=== PATIENT | female | born 1990 | race Caucasian/White ===

== ENCOUNTER 2017-07-28 10:46 | Emergency (ER) | payer SELFPAY ==
[~2017-07-28] VITALS: Ht 162.6 cm; Wt 108.0 kg
[~2017-07-28 10:46] MED LIST: BENT20TA PO; ZOFR4TAB3 PO
[2017-07-28 10:54] VITALS: BP 132/68; PULSE 102; RESP 16; TEMP 98.3; O2SAT 98
--- NOTE | 2017-07-28 12:20 | PD ---
HPI Chief Complaint: Oral / Dental Pain or Problem Time Seen by Provider: 11:30 Travel History International Travel<30 days: No Contact w/Intl Traveler<30days: No Traveled to known affect area: No History of Present Illness HPI 26-year-old female presents to the ED for evaluation of 1 week history of right lower dental pain. Pain is rated 10/10, radiates to the right jaw. No alleviating or exacerbating factors reported. Patient endorses dental problems , including cavities and broken teeth. She denies fever, chills, nausea, vomiting, difficulty swallowing. She treated at home with ibuprofen, last dose last night. She does not have a dentist. PFSH Past Medical History Diminished Hearing: No ?: Not : 0 Past Surgical History Cholecystectomy: Yes Pacemaker: No Social History Alcohol Use: No Tobacco Use: No Substance Use: No Allergies-Medications (Allergen,Severity, Reaction): Coded Allergies: No Known Allergies (Verified Adverse Reaction, Unknown, 07/28/17) Reported Meds & Prescriptions Reported Meds & Active Scripts Active Magic Mouthwash Adult Liq (Multi-Ingredient Mouthwash/Gargle) 120 Ml Susp 10 Ml SWISH-SWAL ACHS 7 Days Each 5mL contains: Nystatin 200,000units, Diphenhydramine 4.25mg, Viscous Lidocaine 10mg, Ashraf syrup 0.8 mL Ibuprofen 800 Mg Tab 800 Mg PO Q8H PRN Penicillin V Potassium 500 Mg Tab 500 Mg PO Q6H 7 Days Zofran ODT (Ondansetron HCl) 4 Mg Tab 4 Mg PO Q6 PRN May substitute, non-ODT form Bentyl (Dicyclomine HCl) 20 Mg Tab 20 Mg PO QID PRN Take as needed for abdominal cramping. Review of Systems Except as stated in HPI: all other systems reviewed are Neg Physical Exam Narrative GENERAL: Well-nourished, well-developed SKIN: Warm and dry. HEAD: Normocephalic. Atraumatic. EYES: No scleral icterus. No injection or drainage. PERRLA. EOMI. ENT: Pearly miller tympanic membranes bilaterally. Nasal mucosa is moist. Oropharynx without erythema, edema or exudate. DENTAL: Poor dentition overall. Multiple dental caries and broken teeth in the right lower jaw. Tooth #31 is surrounded by erythematous and tender mucosa. No evidence of abscess. NECK: Supple, trachea midline. No JVD or lymphadenopathy. CARDIOVASCULAR: Regular rate and rhythm without murmurs, gallops, or rubs. No carotid bruits. 2+ DP and radial pulses bilaterally. RESPIRATORY: Breath sounds clear and equal bilaterally. No accessory muscle use. GASTROINTESTINAL: Abdomen soft, non-tender, nondistended. + Bowel sounds MUSCULOSKELETAL: No cyanosis, or edema. Full, active range of motion. Strength 5/5. Neurovascularly intact. BACK: Nontender without obvious deformity. No CVA tenderness. Data Data Last Documented VS Vital Signs Date Time Temp Pulse Resp B/P (MAP) Pulse Ox O2 Delivery O2 Flow Rate FiO2 07/28/17 12:34 07/28/17 10:54 98.3 102 16 98 Orders Orders Acetamin-Hydrocod 325-5 Mg ([place] 5-325 (07/28/17 12:30) Penicillin V Potassium (Veetids) (07/28/17 12:30) Ed Discharge Order (07/28/17 12:24) [facility] Medical Decision Making Medical Screen Exam Complete: Yes Emergency Medical Condition: Yes Differential Diagnosis Dental abscess versus dental caries versus impacted wisdom tooth versus other Narrative Course 26-year-old female presents to the ED for evaluation of 1 week history of right lower dental pain. Pain is rated 10/10, radiates to the right jaw. Patient endorses dental problems, including cavities and broken teeth. She denies fever , chills, nausea, vomiting, difficulty swallowing. Patient afebrile on presentation. On physical exam she has terrible dentition overall. There is multiple broken teeth and dental caries. One tooth is concerning for possible infected caries. No sign of drainable abscess. She is administered 5 mg Lortab. She is prescribed penicillin VK 500 mg every 6 hour 7 days, first dose administered in the ED. She is also prescribed Magic mouthwash and short course of anti-inflammatories. She is provided with a list of community dental resources. She is stable and discharged home. Diagnosis Primary Impression: Dental caries Additional Impression: Infected dental caries Referrals: Dentist Patient Instructions: Dental Caries (ED), General Instructions Additional Instructions: Rest, hydrate. Take antibiotics until every pill is gone. Magic mouthwash as discussed, as needed for pain. 800 mg ibuprofen every 6-8 hours as needed for pain. Follow-up with a dentist. Return to the ED for any urgent or emergent medical condition. Med/Other Pt SpecificInfo: Prescription(s) given Scripts Glgdiqwy-Ndzjbuvelvsfhuz-Exuhggeft Liq (Magic Mouthwash Adult Liq) 120 Ml Susp 10 ML SWISH-SWAL ACHS for Mouth sores for 7 Days, #120 ML 0 Refills Each 5mL contains: Nystatin 200,000units, Diphenhydramine 4.25mg, Viscous Lidocaine 10mg, Ashraf syrup 0.8 mL Prov: Yaritza Joy MD 07/28/17 Ibuprofen (Ibuprofen) 800 Mg Tab 800 MG PO Q8H Y for Pain/Inflammation, #15 TAB 0 Refills Prov: Yaritza Joy MD 07/28/17 Penicillin V Potassium (Penicillin V Potassium) 500 Mg Tab 500 MG PO Q6H for Infection for 7 Days, #28 TAB 0 Refills Prov: Yaritza Joy MD 07/28/17 Disposition: 01 DISCHARGE HOME Condition: Stable Francesca Alba Jul 28, 2017 12:20
[2017-07-28] MEDS ORDERED: IBUP1TAB7 PO (12:22)
[2017-07-28] MEDS ORDERED: PENI500T PO (12:22)
[2017-07-28] MEDS ORDERED: MAGICADU2 SWISH-SWAL (12:22)
[2017-07-28] MEDS ORDERED: ACETAMINOPHEN/HYDROcodone 325 MG/5 MG TAB PO ONE (12:30)
[2017-07-28] MEDS ORDERED: PENICILLIN V POTASSIUM 500 MG TAB PO ONE (12:30)
== END 2017-07-28 12:33 | disposition home or self-care (01) ==
LOC: NEPD 10:46
DX: K02.9 Dental caries, unspecified (principal)
CPT/HCPCS: 99283

== ENCOUNTER 2017-10-22 00:10 | Emergency (ER) | payer SELFPAY ==
[~2017-10-22] VITALS: Ht 162.6 cm; Wt 105.0 kg
[~2017-10-22 00:10] MED LIST changes: +IBUP1TAB7 PO; +MAGICADU2 SWISH-SWAL; +PENI500T PO
[2017-10-22 00:33] VITALS: BP 174/79; PULSE 80; RESP 20; TEMP 97.5; O2SAT 100
== END 2017-10-22 02:14 | disposition left against medical advice (07) ==
LOC: NED 00:10
DX: K08.89 Other specified disorders of teeth and supporting structures (principal)
CPT/HCPCS: 99281